=== PATIENT | female | born 1975 | race Caucasian/White ===

== ENCOUNTER → 2018-01-08 | Outpatient (CLI) | payer OTHER ==
--- NOTE | 2018-01-09 20:39 | RT HOLTER TEST ---
FACILITY: [facility] - [place] PATIENT NAME: MALISSA MACK : [id number] MR: [id number]: [id number] EXAM DATE: ORDERING PHYSICIAN: TONI AGGARWAL TECHNOLOGIST: SHYAM Hook-up date: 2018-01-08 10:52:00 Duration: 26:55:00 Test Indications: PVC'S Medications: NONE LISTED [id number] QRS complexes 1431 Ventricular ectopics which represent 1 % of total QRS comp. 2 Supraventricular ectopics which represent <1 % of total QRS comp. * Paced QRS complexes which represent % of total QRS comp. VENTRICULAR ECTOPY 1429 Isolated 0 Bigeminal Cycles 1 Couplets 0 Runs 0 Beats in Runs * Beats LONGEST at * BPM at :: -- * Beats FASTEST at * BPM at :: -- SUPRAVENTRICULAR ECTOPY 2 Isolated 0 Couplets 0 Runs 0 Beats in Runs * Beats LONGEST at * BPM at :: -- * Beats FASTEST at * BPM at :: -- HEART RATES 57 MIN at 03:10:33 2018-01-09 85 AVG 143 MAX at 11:02:53 2018-01-09 LONGEST RR 1.352 secs at 05:08:51 2018-01-09 S-T LEVELS Channel 1 -12.800 mm MIN at 10:52:00 2018-01-08 -12.800 mm MAX at 10:52:00 2018-01-08 Channel 2 -12.800 mm MIN at 10:52:00 2018-01-08 -12.800 mm MAX at 10:52:00 2018-01-08 Channel 3 -12.800 mm MIN at 10:52:00 2018-01-08 -12.800 mm MAX at 10:52:00 2018-01-08 The patient was predominantly in a sinus rhythm. The patient's symptom events correlated with ventri cular ectopy (VE). She had many asymptomatic VE, also. There were rare supraventricular ectopy. Confirmed by RODOLFO ATKINSON ([id number]) on 01/09/2018 8:39:32 PM Referred By: Overread By: RODOLFO ATKINSON
== END ==
LOC: US 08:55 → EDBD 13:00
PROVIDERS: ATTEND Internal Medicine Cardiovascular Disease
DX: I49.3 Ventricular premature depolarization (principal); R00.2 Palpitations
CPT/HCPCS: 93225; 93226; 93306